=== PATIENT | female | born 1975 | race Caucasian/White ===

== ENCOUNTER → 2019-05-04 08:47 | Outpatient (CLI) | payer OTHER, SELFPAY ==
--- NOTE | 2019-05-04 08:50 | BI_ITS ---
MAMMOGRAPHY - BILATERAL SCREENING 3-D TOMOSYNTHESIS REASON FOR EXAM: Female, 43 years old. Bilateral Screening 3-D tomosynthesis PERTINENT HISTORY: No significant family history. TECHNIQUE: 2-D mammograms and 3-D Tomosynthesis of the breast (s) were performed. CAD was performed. COMPARISON: None. FINDINGS: The breast composition is composed of scattered fibroglandular density. Scattered benign calcifications are seen. No dense spiculated masses or suspicious microcalcifications are identified. No architectural distortion is identified. There is no skin thickening or retraction. There has been no significant change since the prior study. BI/SCREEN MAMM (CAD) W/ALEXIS BILAT IMPRESSION: No mammographic signs of malignancy. Routine yearly mammograms recommended. ASSESSMENT CATEGORY: BIRADS Category 1: Negative. A letter regarding these results will be sent to the patient by the facility within 30 days. FOLLOW UP RECOMMENDATION: Yearly follow up mammogram recommended. (A) Approximately 10% of breast cancers are not detected by mammography. A normal mammogram should not delay biopsy of a clinically suspicious abnormality. Electronically Signed: Brock Lobo MD at 11:43 EDT , Service support ,
== END ==
PROVIDERS: Family Provider Family Medicine; PCP Family Medicine; Referring Provider Family Medicine; Visit Provider Family Medicine
DX: Z12.31 Encounter for screening mammogram for malignant neoplasm of breast (principal)
CPT/HCPCS: 77063; 77067

== ENCOUNTER → 2019-12-20 | Outpatient (CLI) | payer OTHER, SELFPAY ==
--- NOTE | 2019-12-20 | LES_PTH ---
PATIENT: ULISES RUSSO LOC: [facility] U#:[id number] AGE/SX: 44/F ROOM: RE12/20/[address]: Dr. Hi Menjivar MD : 1975 BED: DIS: 12/20/2019 SPEC #: [id number] RECD: 12/20/19 16:21 STATUS: MADI FREDI #: [id number] DORON: 12/20/19 00:[address]: Hi Menjivar DEPT: SURGICAL PATHOLOGY RECD BY: Edwin Pitt ENTERED: 12/21/19 08:02 SP TYPE: Lesion OTHR DR: Dr. Kenneth Solitario MD Tissues: Skin of arm Procedures: Surgery Specimen Level IV HEADER OPERATION: Right arm ultrasound-guided core biopsy PRE-OP DIAGNOSIS: Right arm mass TISSUE SUBMITTED: Right arm tissue MICROSCOPIC DIAGNOSIS Right arm mass, ultrasound-guided core biopsy: Consistent with benign lymph node tissue with reactive changes. Negative for metastatic carcinoma. See comment. SJ:tori 12/22/19 COMMENT Immunohistochemistry ([id number]) supports the above diagnosis. If there is a high suspicion of lymphoma, excisional biopsy including flow cytometry studies is suggested, if clinically indicated. Case has been reviewed in consultation with Dr. Chambers who concurs with the above diagnosis. IDC:AM MICROSCOPIC DESCRIPTION Slides are reviewed. GROSS DESCRIPTION Received in fixative is one container labeled with the patient's name and designated right arm biopsy. The specimen consists of multiple irregular and elongated fragments of light pereira-yellow soft tissue that in aggregate measure 1.2 x 0.2 x 0.1 cm. The specimen is totally submitted in one cassette. / AM:tori 12/21/19 TC:5 CPT: 25194
--- NOTE | 2019-12-20 | IMM_PTH ---
PATIENT: ULISES RUSSO LOC: [facility] U#:[id number] AGE/SX: 44/F ROOM: RE12/20/[address]: Dr. Hi Menjivar MD : 1975 BED: DIS: 12/20/2019 SPEC #: [id number] RECD: 12/22/19 11:41 STATUS: SOUT REQ #: [id number] DORON: 12/20/19 00:[address]: Hi Menjivar DEPT: IMMUNOHISTOCHEMISTRY RECD BY: Carol Ortiz ENTERED: 12/22/19 11:42 SP TYPE: IMMUNO OTHR DR: Dr. Kenneth Solitario MD Tissues: Right arm (tissue only) Procedures: BCL-2 (add) BCL-6 (add) CD10 (add) CD20 (add) CD23 (add) CD43 (add) CD45 (add) CD5 (add) CD79A (add) CK8 (add) CYCLIN (add) KI-67 (add) MUM1 (add) Pankeratin (add) CD3 (initial) PHYSICIAN & [address] [address] SPECIMEN INFORMATION: Tissue Source: Right arm tissue Clinical Info: Right arm mass Specimen Number: [id number] CPT code: 18926, 33827 x14 METHODOLOGY: Deparaffinized sections of prefer/formalin-fixed tissue or PAP/DQ stained slides are incubated with monoclonal/polyclonal antibodies/oligonucleotide probes. Localization is made via biotin free immunoperoxidase method. Appropriate controls are performed and reacted as expected. Results on target cell population are indicated in the following table: RESULTS: ANTIBODY / CLONE RESULT CD3 (PS1) positive CD5 (SP10) positive CD20 (L26) positive CD79a (11E3) positive CD45 (RP2/18) positive AE1-3 (AE1/AE3/PCK26) negative CK8 (17tbynX87) negative BCL-2 (bcl-2/100/D5) positive BCL-6 (PT640D/A8) negative CD10 (56C6) negative CD23 (1B12) Positive in a dendritic pattern in germinal center CD43 (L60) positive Cyclin D1/BCL-1 (SP4) negative Ki-67 (30-9) positive, low MUM1 (MRQ-43) negative These tests were developed and their performance characteristics determined by [facility]. They may not have been cleared or approved by the [place]. Food and Drug Administration. The FDA has determined that such clearance or approval is not necessary. The above immunohistochemical/dualISH markers are ordered and reviewed by the Pathologist. INTERPRETATION: Right arm, ultrasound-guided core biopsy: Lymph node tissue, polytypic in nature, favor benign with reactive changes. SJ:tori 12/24/19 Case has been reviewed in consultation with Dr. Chambers who concurs with the above diagnosis. IDC:AM
[2019-12-20 14:24] VITALS: BMI 30.8
== END | disposition home or self-care (01) ==
LOC: LABSPEC 16:23
PROVIDERS: PCP Family Medicine; Referring Provider Surgery; Visit Provider Surgery
DX: R22.31 Localized swelling, mass and lump, right upper limb (principal)
CPT/HCPCS: 88305; 88341; 88342

== ENCOUNTER → 2020-03-01 10:24 | Outpatient (CLI) | payer OTHER, SELFPAY ==
[2019-12-20 14:24] VITALS: BMI 30.8
[2020-03-01 12:48] LABS: AST(SGOT) 24 U/L (15-37); Alanine Aminotransfer ALT/SGPT 30 U/L (13-56); Albumin, Serum 3.8 g/dL (3.2-5.0); Alkaline Phosphatase 89 U/L (45-117); Bilirubin, Direct 0.11 mg/dL (0.00-0.30); GGTP 11 U/L (5-55); Globulin 4.5 g/dL (2.2-4.2); Protein, Total 8.3 g/dL (6.4-8.2)
[2020-03-02 16:08] LABS: Endomysial Antibody IgA Negative (Negative)
[2020-03-03 00:45] LABS: Immunoglobulin A 372 mg/dL (87-352); t-Transglutaminase IgA <2 U/mL (0-3)
== END ==
PROVIDERS: PCP Family Medicine; Referring Provider Internal Medicine Gastroenterology; Visit Provider Internal Medicine Gastroenterology
DX: R10.9 Unspecified abdominal pain (principal); K76.0 Fatty (change of) liver, not elsewhere classified
CPT/HCPCS: 36415; 80076; 82784; 82977; 83516; 86140; 86255